=== PATIENT | female | born 1990 | race Caucasian/White ===

== ENCOUNTER 2020-11-23 11:25 | Inpatient (IN) | payer MEDICAID ==
[2020-11-23] MEDS ORDERED: hydrALAZINE 20 MG/1 ML INJ IV ONE ×2 (15:32→16:21)
[2020-11-23] MEDS ORDERED: hydrALAZINE 20 MG/1 ML INJ ONE (15:34)
--- NOTE | 2020-11-23 15:56 | History and Physical Report ---
History of Present Illness Date of examination: 11/23/20 Date of admission: 11/23/20 13:58 Chief complaint: sent from clinic of [facility] with elevated bp History of present illness: at 15wks by dates by LMP, pt has not had an ultrasound as yet. Pt went to care today and BP noted to be elevated hence she was sent for direct admission here at the hospital. pt states that she took meds for hypertension with her last . Pt admits to having headache today and not before. Denies change in her vision. Denies vaginal bleeding, LOF, chest pain, shortness of breath or palpitations. pt takes no meds. Past History Past Medical History: no pertinent history Past Surgical History: no surgical history Family/Genetic History: hypertension (in her brother and parents) Social history: no significant social history - Obstetrical History Expected Date of Delivery: 05/11/21 Actual Gestation: 15 Week(s) 6 Day(s) : 3 Hx # Term Pregnancies: 2 (pt had HTN treated with 2nd preg) Number of Living Children: 2 Medications and Allergies Allergies Allergy/AdvReac Type Severity Reaction Status Date / Time No Known Allergies Allergy Verified 11/23/20 15:35 Review of Systems All systems: negative (headache today) - Vital Signs Vital signs: Vital Signs Temp Pulse Resp BP Pulse Ox 98.3 F 110 H 20 202/142 97 11/23/20 15:05 11/23/20 15:05 11/23/20 15:05 11/23/20 15:05 11/23/20 15:05 Temp Pulse Resp BP Pulse Ox 98.3 F 110 H 20 202/142 97 11/23/20 15:05 11/23/20 15:38 11/23/20 15:05 11/23/20 15:38 11/23/20 15:05 - Physical Exam Breasts: Positive: deferred Cardiovascular: Regular rate Lungs: Positive: Normal air movement Abdomen: Positive: normal appearance Uterus: Positive: other (fundus at 18cm larger than dates) Extremities: Positive: normal Results All other labs normal. Assessment and Plan IUP at 15.6wks by LMP, seen in clinic today for the first time with elevated BP. Pt speaks yi with her family coach to bedside. 1. Admit to antepartum 2. Consult [facility] 3. Send baseline hypertension labs 4. Give hydrallazine now 5. Tylenol prn for headache 6. U/S to date and rule out possible molar or other cause All questions encouraged and answerd
[2020-11-23] MEDS ORDERED: ACETAMINOPHEN 500 MG TAB PO PRN (16:16)
--- NOTE | 2020-11-23 17:38 | Consultation ---
History of Present Illness Consult date: 11/23/20 Requesting physician: ELPIDIO GARZA History of present illness: Translation Service Utilized [employer] [facility] - Clearing Supervisor was [facility] ID # [id number] Ms. Santos is a 30 y/o 15 6/7 weeks ALEJANDRA 05/11/21 sent in from OB's office due to Severe HTN BP's 186/138, 199/133 197/144 States ?? HTN since of her second child in 2019 - Poor Historian - then said thought it was only during Occ JIMENEZ Denies Scotoma or RUQ Pain Currently receiving IV hydralazine and to start PO Labetalol 300 BID Denies vag bleeding leaking OB history 2013 ?? delivery at 28 weeks ?? bleeding " baby stayed in hospital 10 weeks " per healthcare architect - GDM 2019 /vag /CHTN at 37 weeks ?? Suspected CHTN Denies S/D/D Denies STD NKA No surgeries [facility] 11/23/20 cotton at 15 2/7 weeks LABS PENDING Past History Past Medical History: no pertinent history Past Surgical History: no surgical history Family/Genetic History: hypertension (in her brother and parents) - Obstetrical History : 3 Medications and Allergies Allergies Allergy/AdvReac Type Severity Reaction Status Date / Time No Known Allergies Allergy Verified 11/23/20 15:35 Active Meds: Active Medications Acetaminophen (Acetaminophen 500 Mg Tab) 1,000 mg PO Q6H PRN PRN Reason: Pain, Mild (1-3) Last Admin: 11/23/20 16:26 Dose: 1,000 mg Documented by: Labetalol HCl (Labetalol 200 Mg Tab) 300 mg PO BID SHANI Last Admin: 11/23/20 17:00 Dose: 300 mg Documented by: - Vital Signs Vital signs: Vital Signs Temp Pulse Resp BP Pulse Ox 98.3 F 110 H 20 202/142 97 11/23/20 15:05 11/23/20 15:05 11/23/20 15:05 11/23/20 15:05 11/23/20 15:05 Temp Pulse Resp BP Pulse Ox 98.3 F 117 H 20 188/118 97 11/23/20 15:05 11/23/20 17:00 11/23/20 15:05 11/23/20 17:00 11/23/20 15:05 Results All other labs normal. Assessment and Plan Impression 1. Cotton IUP at 15 6/7 weeks 2. Severe HTN 3. Prior H/O GDM 4. Prior H/O Preeclampsia Recommendations 1. Labetalol PO 300 BID 2. IV Labetalol/Hydralazine for BP's sys > 160 or randall > 110 3. Please obtain maternal EKG and Echo 4. PIH labs , UA, 24 hour urine prot, CBC CMP and HbA1c 5. Patient when discharged - should get BP cuff and monitor BP's at home 6. LDA q day 7. Needs to Follow up with both ob and [facility]
--- NOTE | 2020-11-23 18:21 | Ultrasound Report ---
ULTRASOUND OBSTETRIC INDICATION / CLINICAL INFORMATION: gestational age, severe hypertension. Clinical Gestational Age (GA): 15.6 weeks.days TECHNIQUE: Transabdominal. COMPARISON: None available. FINDINGS: There is a single intrauterine . Biparietal Diameter = 3 cm = 15.3 weeks.days Head Circumference = 11.2 cm = 15.3 weeks.days Abdominal Circumference = 9.1 cm = 15.2 weeks.days Femur Length = 1.7 cm = 15.0 weeks.days Average Ultrasound Age (AUA) = 15.2 weeks.days Heart Rate: 152 beats per minute. Position: position change throughout the course of the exam. Cervix: closed. Length in cm (if measured): 5.1 Placenta: Fundal left lateral grade 0 and free of the os. Amniotic Fluid Volume: normal Maternal Adnexa: No significant abnormality. IMPRESSION: 1. Single, living intrauterine with estimated sonographic age of 15.2 weeks.days 2. No significant sonographic abnormality. Signer Name: Fletcher Davis MD Signed: 11/23/2020 6:17 PM Workstation Name: [id number]
[2020-11-23 18:28] LABS: Basophils % (Auto) 0.2 % (0.0-1.8); Eosinophils % (Auto) 0.4 % (0.0-4.3); Hematocrit 42.7 % (30.3-42.9); Hemoglobin 15.2 gm/dl (10.1-14.3); Lymphocytes # (Auto) 2.8 K/mm3 (1.2-5.4); Lymphocytes % (Auto) 27.2 % (13.4-35.0); Mean Corpuscular HGB Conc 36 % (30-34); Mean Corpuscular Volume 90 fl (79-97); Monocytes # (Auto) 0.6 K/mm3 (0.0-0.8); Platelet Count 201 K/mm3 (140-440); Red Blood Count 4.78 M/mm3 (3.65-5.03)
[2020-11-23 18:48] LABS: Alanine Aminotransferase 30 units/L (7-56); Albumin 3.4 g/dL (3.9-5); Blood Urea Nitrogen 8 mg/dL (7-17); Calcium 8.3 mg/dL (8.4-10.2); Hemolysis Index 4
[2020-11-23 18:49] LABS: Uric Acid 4.3 mg/dL (3.5-7.6)
[2020-11-23 19:07] LABS: BUN/Creatinine Ratio 16
[2020-11-23 23:19] LABS: Bacteria,Urine 1+ /HPF (Negative); Bilirubin,Urine NEG (Negative); Blood,Urine NEG (Negative); Color,Urine Yellow (Yellow); Mucus,Urine FEW /HPF; Urobilinogen,Urine < 2.0 mg/dL (<2.0)
--- NOTE | 2020-11-24 07:29 | Progress Note ---
Assessment and Plan Chronic hypertension much improved since antihypertensives IV and then oral; 1. complete 24hr prot later this pm 2. Need echocardiogram 3. appreciate [facility] 4. U/S seen with gest age consistent with LMP Subjective Date of service: 11/24/20 Principal diagnosis: chronic hypertension Interval history: pt denies headache today, has no complaints and resting. Charge Nurse states echocardiogram could not be done until thursday. Objective - Constitutional Vitals: Vital Signs - 12hr 11/23/20 11/24/20 22:45 05:24 Temperature 98.1 F 98.5 F Pulse Rate 87 97 H Respiratory 18 20 Rate Blood Pressure 136/85 131/85 Blood Pressure 136/85 [Right] O2 Sat by Pulse 98 95 Oximetry General appearance: Present: no acute distress - Breasts Breasts: deferred - Cardiovascular Rhythm: regular Extremities: No edema - Gastrointestinal General gastrointestinal: Present: non-tender - Genitourinary Female genitourinary: deferred - Psychiatric Psychiatric: cooperative - Labs CBC & Chem 7: 11/23/20 18:07 11/23/20 18:07 Labs: Abnormal lab results 11/23/20 11/23/20 11/23/20 Range/Units 18:07 18:07 18:07 Hgb 15.2 H (10.1-14.3) gm/dl MCHC 36 H (30-34) % Potassium 3.0 L (3.6-5.0) mmol/L Creatinine 0.5 L (0.6-1.2) mg/dL Glucose 154 H (65-100) mg/dL Calcium 8.3 L (8.4-10.2) mg/dL Lactate Dehydrogenase 258 H (91-180) units/L Total Protein 6.1 L (6.3-8.2) g/dL Albumin 3.4 L (3.9-5) g/dL Medications & Allergies - Medications Allergies/Adverse Reactions: Allergies No Known Allergies Allergy (Verified 11/23/20 15:35) Home Medications: Home Medications Medication Instructions Recorded Confirmed Last Taken Type No Known Home Medications [No 11/24/20 11/24/20 Unknown History Reported Home Medications] Active Medications: Generic Name Dose Route Start Last Admin Trade Name Freq PRN Reason Stop Dose Admin Acetaminophen 1,000 mg 11/23/20 16:16 11/23/20 16:26 Acetaminophen 500 Mg Tab PO 1,000 mg Q6H PRN Administration Pain, Mild (1-3) Labetalol HCl 300 mg 11/23/20 17:00 11/23/20 22:45 Labetalol 200 Mg Tab PO 300 mg BID SHANI Administration
[2020-11-24 22:56] LABS: Creatinine 24 Hour,Urine 1.7 (0.8-2.8); Creatinine,Urine 53.5 mg/dL (0.1-20.0)
[2020-11-25] MEDS: amLODIPine 5 MG TAB PO SCH (06:09)
--- NOTE | 2020-11-25 07:54 | Progress Note ---
Assessment and Plan HD#3 IUP at 16.0wks c/w u/s at hospital with uncontrolled newly diagnosed HTN 1. Appreciate [facility] 2. 24hr prot completed today and awaiting results 3. BP meds adjusted upwards to 300mg bid and norvasc 5mg added 4. Echocardiogram done and official report pending Will discharge home tomorrow if BP controlled Subjective Date of service: 11/25/20 Principal diagnosis: IUP at 16.0wks, CHTN uncontrolled Interval history: pt has no complaints and states that she has children at home to take care of. Partner to bedside agrees. pt denies headache or chest pain. Nurse called me with BP 160/100's this am and repeated same was 150''100's. Pt denies any pain or vag bleed Objective - Constitutional Vitals: Vital Signs - 12hr 11/24/20 11/25/20 11/25/20 22:14 01:06 05:23 Temperature 97.8 F 98.1 F Pulse Rate 77 88 88 Respiratory 18 18 Rate Blood Pressure 153/96 142/93 168/106 O2 Sat by Pulse 96 96 Oximetry 11/25/20 06:09 Temperature Pulse Rate 79 Respiratory Rate Blood Pressure 159/102 O2 Sat by Pulse Oximetry General appearance: Present: no acute distress - Cardiovascular Rhythm: regular Extremities: no ischemia - Gastrointestinal General gastrointestinal: Present: soft, non-tender - Genitourinary Female genitourinary: deferred - Psychiatric Psychiatric: cooperative - Labs CBC & Chem 7: 11/23/20 18:07 11/23/20 18:07 Labs: Abnormal lab results 11/24/20 11/25/20 Range/Units 21:30 06:30 Urine Creatinine 53.5 H (0.1-20.0) mg/dL Ur Total Protein 24 Hr 1922.00 H (2-200) mg/dL Urine Total Protein 62 H (5-11.8) mg/dL Medications & Allergies - Medications Allergies/Adverse Reactions: Allergies No Known Allergies Allergy (Verified 11/23/20 15:35) Home Medications: Home Medications Medication Instructions Recorded Confirmed Last Taken Type No Known Home Medications [No 11/24/20 11/24/20 Unknown History Reported Home Medications] Active Medications: Generic Name Dose Route Start Last Admin Trade Name Freq PRN Reason Stop Dose Admin Acetaminophen 1,000 mg 11/23/20 16:16 11/23/20 16:26 Acetaminophen 500 Mg Tab PO 1,000 mg Q6H PRN Administration Pain, Mild (1-3) Amlodipine Besylate 5 mg 11/25/20 06:00 11/25/20 06:09 Amlodipine 5 Mg Tab PO 5 mg QDAY SHANI Administration Labetalol HCl 300 mg 11/25/20 06:00 11/25/20 06:09 Labetalol 200 Mg Tab PO 300 mg BID SHANI Administration
[2020-11-25 08:25] LABS: Alanine Aminotransferase 22 units/L (7-56); Albumin 3.2 g/dL (3.9-5); Blood Urea Nitrogen 8 mg/dL (7-17); Calcium 8.6 mg/dL (8.4-10.2); Hemolysis Index 5
[2020-11-25 08:29] LABS: BUN/Creatinine Ratio 13
[2020-11-25] MEDS: POTASSIUM CHLORIDE ER 20 MEQ TAB PO SCH ×3 (09:28→17:18)
[2020-11-25] MEDS ORDERED: hydrALAZINE 20 MG/1 ML INJ IV ONE (17:59)
[2020-11-26 08:07] LABS: Alanine Aminotransferase 21 units/L (7-56); Albumin 3.3 g/dL (3.9-5); BUN/Creatinine Ratio 18; Blood Urea Nitrogen 11 mg/dL (7-17); Calcium 9.2 mg/dL (8.4-10.2); Hemolysis Index 11
--- NOTE | 2020-11-26 09:19 | Consultation ---
History of Present Illness Consult date: 11/26/20 History of present illness: Translation Service Utilized [employer] was Oo # [id number] Ms. Santos is a 30 y/o 16 2/7 weeks ALEJANDRA 05/11/21 sent in from OB's office due to Severe HTN BP's 186/138, 199/133 197/144 initially States ?? HTN since of her second child in 2019 - Poor Historian - then said thought it was only during ===== Patient now on Labetalol 400 BID and amlodipine 5 mg q day Denies JIMENEZ's Scotoma or RUQ Pain - Denies Vag Bleeding Denies Swelling Now BP's improved BP high last pm 11/25/20 at 9pm - 155/93 BP's 11/26/20 at 137/81 at [place], 140/95 and 133/76 Abd NT no RUQ tenderness Ext NT No edema DTR 2/4 and no clonus OB history 2014 ?? delivery at 28 weeks ?? bleeding " baby stayed in hospital 10 weeks " per tape recorder mechanic - GDM 2019 /vag /CHTN at 37 weeks ?? Suspected CHTN Denies S/D/D Denies STD NKA No surgeries [facility] 11/23/20 cotton at 15 2/7 weeks LABS AST/ALT at Creat .6 Plts at 201 24 Hour urine prot at 1922 H/H at Maternal Echo - Normal some LV hypertrophy Past History Past Medical History: no pertinent history Past Surgical History: no surgical history Family/Genetic History: hypertension (in her brother and parents) - Obstetrical History : 3 Medications and Allergies Allergies Allergy/AdvReac Type Severity Reaction Status Date / Time No Known Allergies Allergy Verified 11/23/20 15:35 Home Medications Medication Instructions Recorded Confirmed Last Taken Type No Known Home Medications [No 11/24/20 11/24/20 Unknown History Reported Home Medications] Active Meds: Active Medications Acetaminophen (Acetaminophen 500 Mg Tab) 1,000 mg PO Q6H PRN PRN Reason: Pain, Mild (1-3) Last Admin: 11/23/20 16:26 Dose: 1,000 mg Documented by: Amlodipine Besylate (Amlodipine 5 Mg Tab) 5 mg PO QDAY [facility] Last Admin: 11/25/20 06:09 Dose: 5 mg Documented by: Labetalol HCl (Labetalol 200 Mg Tab) 400 mg PO BID [facility] Last Admin: 11/25/20 22:38 Dose: 400 mg Documented by: - Vital Signs Vital signs: Vital Signs Temp Pulse Resp BP Pulse Ox 98.3 F 110 H 20 202/142 97 11/23/20 15:05 11/23/20 15:05 11/23/20 15:05 11/23/20 15:05 11/23/20 15:05 Temp Pulse Resp BP Pulse Ox 97.6 F 90 18 133/76 97 11/26/20 07:27 11/26/20 07:27 11/26/20 07:27 11/26/20 07:27 11/26/20 07:27 Results Result Diagrams: 11/23/20 18:07 11/26/20 07:12 Abnormal lab results 11/26/20 Range/Units 07:12 Glucose 114 H (65-100) mg/dL Total Protein 6.1 L (6.3-8.2) g/dL Albumin 3.3 L (3.9-5) g/dL All other labs normal. Assessment and Plan Assessment and Plan Impression 1. Cotton IUP at 16 2/7 weeks 2. Severe HTN 3. Prior H/O GDM 4. Prior H/O Preeclampsia Recommendations 1. May discharged home on Labetalol PO 400 BID and Amlodipine 2. [employer] utilized and patient and given all PIH precautions and told to call or return if S/S of PIH occur 3. FU by end of week with OB for BP check 4. Please also provide script for LDA q day 5. Patient when discharged - should get BP cuff and monitor BP's at home explained thru tape recorder mechanic 6. Regular follow up with OB and [facility]
--- NOTE | 2020-11-26 09:28 | Progress Note ---
Assessment and Plan seen by NABOR stable for discharge rx sent to pharmacy [facility] one week abortive precautions Tariq Tang MD Subjective - Subjective Date of service: 11/26/20 Principal diagnosis: CHTN Objective - Vital Signs Vital Signs: Vital Signs - 12hr 11/25/20 11/26/20 11/26/20 22:38 00:33 05:00 Temperature 98.6 F 98.4 F Pulse Rate 87 88 88 Respiratory 14 14 Rate Blood Pressure 155/93 Blood Pressure 137/81 140/95 [Left] Blood Pressure [Right] O2 Sat by Pulse 90 96 Oximetry 11/26/20 07:27 Temperature 97.6 F Pulse Rate 90 Respiratory 18 Rate Blood Pressure Blood Pressure [Left] Blood Pressure 133/76 [Right] O2 Sat by Pulse 97 Oximetry - Exam Breasts: deferred Cardiovascular: Regular rate Abdomen: Present: normal appearance, normal bowel sounds Uterus: Present: normal, firm Extremities: normal Deep Tendon Reflex Grade: Normal but brisk +3 - Labs Labs: Abnormal Labs 11/23/20 11/23/20 11/23/20 18:07 18:07 18:07 Hgb 15.2 H MCHC 36 H Potassium 3.0 L Creatinine 0.5 L Glucose 154 H Calcium 8.3 L Lactate Dehydrogenase 258 H Total Protein 6.1 L Albumin 3.4 L Urine Creatinine Ur Total Protein 24 Hr Urine Total Protein 11/24/20 11/25/20 11/25/20 21:30 06:30 07:39 Hgb MCHC Potassium 3.1 L Creatinine Glucose Calcium Lactate Dehydrogenase Total Protein 5.9 L Albumin 3.2 L Urine Creatinine 53.5 H Ur Total Protein 24 Hr 1922.00 H Urine Total Protein 62 H 11/26/20 07:12 Hgb MCHC Potassium Creatinine Glucose 114 H Calcium Lactate Dehydrogenase Total Protein 6.1 L Albumin 3.3 L Urine Creatinine Ur Total Protein 24 Hr Urine Total Protein Laboratory Results - last 24 hr 11/26/20 07:12 Sodium 138 Potassium 3.7 Chloride 103.9 Carbon Dioxide 22 Anion Gap 16 BUN 11 Creatinine 0.6 Estimated GFR > 60 BUN/Creatinine Ratio 18 Glucose 114 H Calcium 9.2 Total Bilirubin 0.30 AST 25 ALT 21 Alkaline Phosphatase 63 Total Protein 6.1 L Albumin 3.3 L Albumin/Globulin Ratio 1.2
[2020-11-26] MEDS: amLODIPine 5 MG TAB PO SCH (10:17)
--- NOTE | 2020-11-26 11:43 | Discharge Summary ---
Providers - Providers Date of Admission: 11/23/20 13:58 Date of discharge: 11/26/20 Attending physician: ELPIDIO GARZA 11/23/20 15:50 Consult to Physician [CONS] Urgent Comment: Consulting Provider: [facility] Physician Instructions: Reason For Exam: severe HTN, IUP at 15wks Primary care physician: ELPIDIO GARZA Hospitalization Hospital course: CHTN: stable on meds followed by [facility] maternal/ well being reassuring Tariq Tang MD Condition at discharge: Stable Disposition: DC-01 TO HOME OR SELFCARE Plan - Discharge Medications Prescriptions: amLODIPine 5 mg PO DAILY #30 tab Labetalol HCl [Labetalol 300mg TAB] 400 mg PO BID #60 tablet - Provider Discharge Summary Additional instructions: [] Smoking cessation referral if applicable(refer to patient education folder for contact #) [] Refer to [facility] Booklet Call your doctor immediately for: * Fever > 100.5 * Heavy vaginal bleeding ( >1 pad per hour) * Severe persistent headache * Shortness of breath * Reddened, hot, painful area to leg or breast * Drainage or odor from incision. * Keep incision clean and dry at all times and follow doctor's instructions regarding bathing/showering - Follow up plan Follow up: ELPIDIO GARZA MD [Primary Care Provider] - 7 Days Forms: [facility] Discharge Summary
[2020-11-26 12:14] VITALS: BP 133/87
--- NOTE | 2020-11-28 08:37 | Electrocardiograph Report ---
[facility] Test Date: 2020-11-23 Test Time: 20:54:07 Pat Name: [facility] Department: Room: 2104 1 Gender: F Real Estate Transaction Manager: EDWAR : 1990 Requested By: ELPIDIO GARZA Order Number: [id number] Reading MD: Thanh Hendricks Measurements Intervals [place] Rate: 94 P: 61 SC: 165 QRS: 45 QRSD: 91 T: 9 QT: 377 QTc: 471 Interpretive Statements Sinus rhythm No previous ECG available for comparison Electronically Signed On 11-28-2020 5:37:31 PDT by Thanh Hendricks
== END 2020-11-26 12:45 | disposition home or self-care (01) | DRG 781 ==
LOC: 3A 11:25 → UNDOADMIN 11:25 → OB 13:58
PROVIDERS: ADMIT Obstetrics & Gynecology; ATTEND Obstetrics & Gynecology
DX: O10.912 Unspecified pre-existing hypertension complicating pregnancy, second trimester (principal); Z3A.15 15 weeks gestation of pregnancy; Z20.822 Contact with and (suspected) exposure to COVID-19
CPT/HCPCS: 36415; 76805; 80053; 81001; 82570; 83036; 83615; 84156; 84439; 84443; 84550; 85025; 93005; 93306; G0378; J0360; U0003